=== PATIENT | male | born 1960 | race Caucasian/White ===

== ENCOUNTER 2016-06-13 18:42 | Emergency (ER) | payer OTHER ==
--- NOTE | ~2016-06-13 | CT4 ---
[facility] A Service of [facility] RADIOLOGY TEXT RESULTS PATIENT: JOSE FLORES LOCATION: [facility] : 56 UNIT #: [id number] AGE: [address]: Dev Mike MD SEX: M ORDER DR: [id number] [facility] [address] [place], [place] [address] [id number] MR#: [id number] Acc #: [id number] NAME: JOSE FLORES : 1960 SEX: M STUDY DATE/TIME: 06/13/2016 19:55 UNIT: [facility] ROOM: STUDY DESCRIPTION: CT Abd and Pelv Wo Cont Attending Physician: Dev Mike M.D. Ordering Physician: Dev Mike M.D. Primary Care Physician: Primary Care Physician No MEDICAL IMAGING REPORT This report is preliminary unless electronic signature is present EXAM CT scan of the abdomen and pelvis without contrast, 06/13/2016 HISTORY Left lower quadrant abdominal pain for 2 days, hernia. TECHNIQUE Spiral CT was performed through the abdomen and pelvis following oral contrast administration only, as per clinician request. This CT exam was performed with one or more of the following radiation dose reduction techniques: Automatic exposure control, adjustment of mA and/or kV according to patient size, and iterative reconstruction. FINDINGS ABDOMEN: The exam is limited by the lack of intravenous contrast. The liver, spleen, pancreas, gallbladder and biliary tree, adrenal glands and kidneys are normal. PELVIS FINDINGS: There is colonic diverticulosis without evidence of diverticulitis. The gut is otherwise unremarkable. No adenopathy is seen. There is no free fluid in the abdomen or pelvis. No hernia is seen. Emphysematous changes are seen at the lung bases. IMPRESSION 1. The exam is limited by the lack of intravenous contrast. 2. Diverticulosis. No evidence of diverticulitis. 3. No inguinal hernia is seen. 4. Emphysematous changes at the lung bases. Dictated by... Laurent Conteh M.D. [facility] A Service of [facility] RADIOLOGY TEXT RESULTS PATIENT: JOSE FLORES LOCATION: [facility] : 56 UNIT #: [id number] AGE: [address]: Dev Mike MD SEX: M ORDER DR: THIS IS AN ELECTRONICALLY VERIFIED REPORT Laurent Conteh M.D. at 06/14/2016 10:57 AM KRT/psc TD: 06/14/2016 04:39 JOB #: [id number] MEDICAL IMAGING REPORT COPY
[~2016-06-13 18:42] MED LIST: FLEXERIL PO; KETOPROFEN PO
[2016-06-13 18:51] LABS: BASOPHIL# 0.1 X10e3 (0-0.3); BASOPHIL% 0.6 % (0-2.5); DIFF IND NO; EOSINOPHIL# 0.2 X10e3 (0-0.7); EOSINOPHIL% 1.8 % (0.0-7.0); HEMATOCRIT 45.4 % (38.0-50.0); HEMOGLOBIN 15.5 gm/dL (13.0-16.0); LYMPHOCYTE# 2.8 X10e3 (1.0-3.5); LYMPHOCYTE% 28.4 % (17.0-45.0); MEAN CELL VOLUME 87.2 FL (83-96); MEAN CORPUSCULAR HEMOGLOBIN 29.7 PG (28-34); MEAN CORPUSCULAR HGB CONC 34.1 g/dL (30-36); MEAN PLATELET VOLUME 7.5 FL (6.5-11.5); MONOCYTE# 0.8 X10e3 (0-1.0); MONOCYTE% 8.3 % (3.0-12.0); NEUTROPHIL% 60.9 % (40-75); PLATELET COUNT 227 X10e3 (140-420); RED CELL DISTRIBUTION WIDTH 13.4 % (11.0-15.5); WHITE BLOOD COUNT 9.8 X10e3 (4.0-10.5)
[2016-06-13 19:04] LABS: URINE SOURCE CLEAN CATCH
[2016-06-13 19:09] LABS: URINE APPEARANCE CLEAR; URINE BLOOD NEG (NEG); URINE COLOR DK YELLOW; URINE GLUCOSE NEG (NEG); URINE KETONE TRACE (NEG); URINE LEUKOCYTE ESTERASE NEG (NEG); URINE NITRATE NEG (NEG); URINE PROTEIN NEG (NEG); URINE SPECIFIC GRAVITY 1.035 (1.003-1.035)
[2016-06-13 19:13] LABS: URINE BILIRUBIN NEG (NEG)
[2016-06-13 19:19] LABS: CULTURE INDICATED? NO
[2016-06-13 19:37] LABS: ALBUMIN SERUM 4.4 g/dL (3.5-5.0); BILIRUBIN, DIRECT 0.3 mg/dL (0.0-0.2); BILIRUBIN,INDIRECT 1.2 mg/dL (0.0-0.9); BILIRUBIN,TOTAL 1.5 mg/dL (0.2-2.0); BUN/CREATININE RATIO 16.42; CALCIUM SERUM 9.1 mg/dL (8.4-10.2); CREATININE SERUM 1.4 mg/dL (0.6-1.4); GLOM FILT RATE Estimated 55.5 mL/min (>60); POTASSIUM 3.7 mmol/L (3.5-5.1); PROTEIN TOTAL SERUM 7.5 g/dL (6.0-8.3)
== END 2016-06-13 21:41 | disposition home or self-care (01) ==
LOC: CED 18:42
PROVIDERS: Emergency Medicine
DX: R10.32 Left lower quadrant pain (principal); M54.5 Low back pain; G89.29 Other chronic pain; Z98.890 Other specified postprocedural states; Z88.8 Allergy status to other drugs, medicaments and biological substances; F17.210 Nicotine dependence, cigarettes, uncomplicated
CPT/HCPCS: 36415; 74176; 80048; 80076; 81003; 83690; 85025; 99284

== ENCOUNTER 2016-06-15 16:55 | Emergency (ER) | payer OTHER ==
--- NOTE | ~2016-06-15 | US115 ---
[facility] A Service of [facility] RADIOLOGY TEXT RESULTS PATIENT: JOSE FLORES LOCATION: [facility] : 56 UNIT #: [id number] AGE: [address]: Tatyana Beltran MD SEX: M ORDER DR: [id number] [facility] [address] [place], [place] [address] [id number] E MR#: [id number] Acc #: [id number] NAME: JOSE FLORES : 1960 SEX: M STUDY DATE/TIME: 06/15/2016 16:10 UNIT: [facility] ROOM: STUDY DESCRIPTION: US Scrotum and Contents Attending Physician: Tatyana Beltran M.D. Referring Physician: Yudelka Primary Care Physician Ordering Physician: Tatyana Beltran M.D. Primary Care Physician: No Primary Care Physician MEDICAL IMAGING REPORT This report is preliminary unless electronic signature is present EXAM Scrotal ultrasound with Doppler imaging. DATE OF EXAM 06/15/2016 INDICATION Left-sided testicular pain for 2 days. History of hernia in 2013 and testicular torsion 22 years ago. TECHNIQUE The scrotal contents were evaluated with hernandez-scale imaging, and color flow Doppler. FINDINGS The right testicle is 5 x 2.1 x 3.1 cm, and the left testicle is 5 x 2.2 x 3.1 cm. The right testicle has a small cyst under the capsule measuring 8 mm in diameter. The left epididymis has a small cyst measuring 7 mm in diameter. There is no evidence of epididymitis or varicocele. IMPRESSION No acute abnormalities. There is a 7 mm cyst in the left epididymis and there is an 8 mm cyst in the right testicle. There is normal flow and no evidence of torsion. Dictated by... Florentino Haq M.D. THIS IS AN ELECTRONICALLY VERIFIED REPORT Florentino Haq M.D. at 06/16/2016 1:27 PM FEL/jt [facility] A Service of [facility] RADIOLOGY TEXT RESULTS PATIENT: JOSE FLORES LOCATION: [facility] #: [id number] : 56 UNIT #: [id number] AGE: [address]: Tatyana Beltran MD SEX: M ORDER DR: TD: 06/15/2016 21:32 JOB #: [id number] MEDICAL IMAGING REPORT COPY
[2016-06-15 16:19] LABS: URINE SOURCE CLEAN CATCH
[2016-06-15 16:31] LABS: URINE APPEARANCE CLEAR; URINE BLOOD NEG (NEG); URINE COLOR DK YELLOW; URINE GLUCOSE NEG (NEG); URINE KETONE NEG (NEG); URINE LEUKOCYTE ESTERASE TRACE (NEG); URINE NITRATE NEG (NEG); URINE PROTEIN NEG (NEG); URINE SPECIFIC GRAVITY 1.037 (1.003-1.035)
[2016-06-15 16:34] LABS: URBCS1 AUWI 0-2 /[HPF] (0-2); URINE BACTERIA AUWI NEG (NEGATIVE); URINE SQUAMOUS EPITHELIAL CELL NONE SEEN /[HPF]
[2016-06-15 16:45] LABS: CULTURE INDICATED? NO; URINE BILIRUBIN NEG (NEG)
[2016-06-20 19:08] LABS: CHLAMYDIA TRACH Not Detected (Not Detected); N GONOR Not Detected (Not Detected)
== END 2016-06-15 17:35 | disposition home or self-care (01) ==
LOC: CED 16:55
PROVIDERS: Student in an Organized Health Care Education/Training Program
DX: N50.3 Cyst of epididymis (principal); K59.00 Constipation, unspecified; R30.0 Dysuria; F17.200 Nicotine dependence, unspecified, uncomplicated; Z98.890 Other specified postprocedural states; Z88.5 Allergy status to narcotic agent
CPT/HCPCS: 76870; 81003; 87491; 87591; 93976; 99284